=== PATIENT | male | born 1955 | race Caucasian/White ===

== ENCOUNTER 2018-08-27 13:17 | Outpatient (CLI) | payer OTHER ==
[2018-08-27] MEDS ORDERED: ALBUTEROL NEB 2.5 MG/3 ML INH ONE (13:35)
[2018-08-27] MEDS ORDERED: ALBUTEROL NEB 2.5 MG/3 ML INH SCH (15:00)
== END 2018-08-27 13:18 | disposition home or self-care (01) ==
LOC: RT 13:17
PROVIDERS: ATTEND Internal Medicine
DX: R06.09 Other forms of dyspnea (principal)
CPT/HCPCS: 94060

== ENCOUNTER 2019-04-05 06:48 | Day surgery (SDC) | payer OTHER ==
[2019-04-05] MEDS ORDERED: LACTATED RINGERS 1,000 ML IV ONE ×2 (06:56→09:07)
[2019-04-05] MEDS ORDERED: CEFAZOLIN SODIUM IN 0.9 % NACL 2 GM/100 ML BAG IV ONE (06:57)
--- NOTE | 2019-04-05 07:10 | ANESTHESIA ---
Pre-Anesthesia VS, & Labs - Diagnosis Right elbow cubital tunnel impingement - Procedure Right cubital elbow tunnel release Height 5 ft 8.9 in Weight (kg) 78.6 kg Body Mass Index 27.1 - NPO >8 hours Home Medications and Allergies Home Medications: Ambulatory Orders Aspirin [Aspirin EC] 81 mg PO 04/02/19 Carboxymethylcellulos/Glycerin [Refresh Optive Eye Drops] 5 ml OP 04/02/19 Fluticasone/Salmeterol [Advair 250-50 Diskus] 1 each IH 04/02/19 Loratadine [Claritin] 10 mg PO 04/02/19 Tiotropium [place] [Spiriva] 1 puffs INH DAILY 04/02/19 lisinopriL [Lisinopril] 20 mg PO QPM 04/02/19 Ibuprofen [Motrin Ib] 800 mg PO PRN PRN 05/08/17 Aspirin [Aspirin EC] 81 mg PO 04/02/19 Carboxymethylcellulos/Glycerin [Refresh Optive Eye Drops] 5 ml OP 04/02/19 Fluticasone/Salmeterol [Advair 250-50 Diskus] 1 each IH 04/02/19 Loratadine [Claritin] 10 mg PO 04/02/19 Tiotropium [place] [Spiriva] 1 puffs INH DAILY 04/02/19 lisinopriL [Lisinopril] 20 mg PO QPM 04/02/19 Allergies/Adverse Reactions: Allergies Allergy/AdvReac Type Severity Reaction Status Date / Time No Known Drug Allergies Allergy Verified 04/02/19 08:21 Anes History & Medical History - Anesthetic History Anesthesia Complications: reports: No previous complications Family history of Anesthesia Complications: Denies Family history of Malignant Hyperthermia: Denies (Heartburn rare) - Medical History Cardiovascular: reports: Hypertension, High cholesterol Pulmonary: reports: COPD Gastrointestinal: reports: GERD Urinary: reports: None, Other Neuro: reports: CVA (Right arn numbness, 4th/5th digit movement restrictions) Musculoskeletal: reports: Other Endocrine/Autoimmune: reports: None Skin: reports: None Smoking Status: Current every day smoker Psychosocial: reports: No issues indicated - Surgical History General: Colonoscopy, Other Orthopedic: Other Exam General: Alert, Oriented x3, Cooperative Dental: WNL Mouth Opening: Greater than 4 Fingerbreadths Neck Mobility: Normal Mallampati classification: I Thyromental Distance: greater than 6 cm Respiratory: Lungs clear Cardiovascular: Regular rate Mental/Cognitive Status: Alert/Oriented X3 Cognitive Status: Within normal limits Plan Anesthesia Type: General Consent for Procedure(s) Verified and Reviewed: Yes Code Status: Attempt Resuscitation ASA classification: 2-Mild systemic disease Is this case an emergency?: No
[2019-04-05] MEDS ORDERED: BUPIVACAINE 0.25% PF 30 ML VIAL ONE (07:24)
[2019-04-05] MEDS ORDERED: LIDOCAINE 1% 50 ML MDV ONE (07:34)
[2019-04-05] MEDS ORDERED: DEXAMETHASONE 4 MG/ML VIAL IVP ONE (08:11)
[2019-04-05] MEDS ORDERED: ePHEDrine 50 MG/ML VIAL IVP ONE (08:11)
[2019-04-05] MEDS ORDERED: LIDOCAINE-MPF 2% 5 ML VIAL IM ONE (08:11)
[2019-04-05] MEDS ORDERED: MIDAZOLAM 2 MG/2 ML VIAL IVP ONE (08:11)
[2019-04-05] MEDS ORDERED: ACETAMINOPHEN 1,000 MG/100 ML 100 ML IV ONE (08:11)
[2019-04-05] MEDS ORDERED: ROCURONIUM 50 MG/5 ML VIAL IVP ONE (08:11)
[2019-04-05] MEDS ORDERED: PROPOFOL 200 MG/20 ML VIAL IVP ONE (08:11)
[2019-04-05] MEDS ORDERED: ONDANSETRON 4 MG/2 ML VIAL IVP ONE (08:11)
[2019-04-05] MEDS ORDERED: fentaNYL 100 MCG/2 ML VIAL IVP ONE (08:11)
[2019-04-05] MEDS ORDERED: BUPIVACAINE 0.25% PF 30 ML VIAL SUBQ ONE (08:40)
[2019-04-05] MEDS ORDERED: ONDANSETRON 4 MG/2 ML VIAL IVP PRN (09:32)
[2019-04-05] MEDS ORDERED: oxyCODONE 5 MG TABLET PO PRN (09:32)
--- NOTE | 2019-04-05 09:43 | OPERATIVE REPORT ---
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 No protruding osteophytes were seen. The ulnar nerve was in continuity. Indication For Surgery: 63-year-old male with a history of a stroke who developed an ulnar nerve palsy about a month ago. Nerve conduction studies confirmed very severe compression at the elbow. The goal of surgery was to prevent any further nerve dysfunction and hopefully allow for recovery of muscle function. The risks, benefits, and alternatives were discussed. Risks include pain, bleeding, infection, damage to nearby structures to include nerves and blood vessels, numbness of the forearm, instability of the nerve, lack of symptom relief, need for further surgery, DVT, PE, stroke, and . Written consent was obtained. Procedure in Detail: The patient was met in the pre-operative hold area on the day of the procedure. The operative extremity was signed and questions were answered. The patient was brought to the operating room and a general anesthetic was administered. Supine position was used and bony prominences were padded. Standard prepping and draping was performed. A sterile tourniquet was applied. A time out confirmed patient identification, laterality, procedure, allergies, antibiotics, and images. An Esmarch was used to exsanguinate the limb and the tourniquet was elevated to 250 mmHg. Total tourniquet time was [] minutes. A 5 cm incision was made along the course of the ulnar nerve just posterior to the medial epicondyle. Scissor dissection was carried out and branches of the medial antebrachial cutaneous nerve were identified and protected. Scissor dissection was carried down to the cubital tunnel and it was opened just anterior to the attachment of the ligament on the olecranon. I took care to stay posterior to prevent future subluxation of the nerve. The ulnar nerve was identified and the cubital tunnel was dissected distally very carefully. I encountered the initial sensory branch to the capsule and the motor branches to the FCU and protected them. I sharply transected the fascia over the FCU to gain further access to the ulnar nerve as it passed deep into the muscle. blunt dissection was used to dissect the muscle and exposed the nerve further. I then released the fascia deep to the muscle and ensured the nerve was freely mobile distally without any compression points. I then moved proximal and followed the nerve up the medial arm a few centimeters taking care to protect any cutaneous branches. I freed the nerve proximally 4 cm from the medial epicondyle. I took care to leave as many veins as possible attached to the nerve. I then inspected deep to the nerve an did not find any protruding osteophytes. The course of the nerve was smooth and no bony resection was necessary. I then irrigated the wound copiously and took him through a full range of motion. The nerve had no compression points and remained stable in the groove. I then loosely approximated the fascia to the posterior soft tissues to provide additional support. I again moved him through a full range of motion and the nerve glided smoothly without instability or compression points. The wound was then closed in a layered fashion with 2-0 Vicryl in the dermis and running Monocryl in the skin. A sterile dressing was then applied and a bulky dressing was placed with the elbow nearly fully extended. He was awakened and transferred to the recovery room Postoperative plan: Gentle range of motion from 0-2 weeks. Follow-up at 2 weeks to cut Monocryl suture ends and assess the wound. I will remove the bulky dressing at that time and advance range of motion. No strengthening until 6 weeks.
[2019-04-05] MEDS ORDERED: oxyCODONE 5 MG TABLET ONE (10:13)
[2019-04-05 10:33] VITALS: BP 110/62
== END 2019-04-05 06:49 | disposition home or self-care (01) ==
LOC: SDS 06:48
PROVIDERS: ATTEND Orthopaedic Surgery
PROC: 01N40ZZ Release Ulnar Nerve, Open Approach (ICD-10-PCS; principal; 2019-04-05 08:00)
DX: G56.21 Lesion of ulnar nerve, right upper limb (principal); M19.021 Primary osteoarthritis, right elbow; I69.331 Monoplegia of upper limb following cerebral infarction affecting right dominant side; I10 Essential (primary) hypertension; J44.9 Chronic obstructive pulmonary disease, unspecified; F17.290 Nicotine dependence, other tobacco product, uncomplicated; Z79.899 Other long term (current) drug therapy; Z79.51 Long term (current) use of inhaled steroids; Z79.82 Long term (current) use of aspirin

== ENCOUNTER 2019-07-30 12:12 | Outpatient (CLI) | payer OTHER ==
--- NOTE | 2019-07-30 17:19 | MRI Report ---
Reason: CERVICALGIA Procedure Date: 07/30/2019 Accession Number: [id number] / [id number] Procedure: MRI - Cervical Spine W/O CPT Code: Final Report FULL RESULT: PROCEDURE: Cervical Spine W/O INDICATIONS: CERVICALGIA TECHNIQUE: Noncontrast sagittal T1 spin echo and T2 fast spin echo, sagittal STIR, foraminal oblique sagittal T2 fast spin echo, and axial gradient echo or T2 fast spin echo through the cervical spine. COMPARISON: None. FINDINGS: Image quality: Excellent. Alignment and Curvature: There is normal bony alignment. Bone Marrow: Mild reactive endplate changes noted adjacent to the C6-C7 disc. Spinal Cord: Visualized spinal cord has normal size and signal. No cerebellar tonsillar herniation. Paraspinous Soft Tissues: No paravertebral masses. Prevertebral soft tissues are normal in thickness. C2-C3: Loss of disc signal. No central stenosis. Mild left facet hypertrophy. Mild left neural foraminal narrowing. No neural compression. C3-C4: Loss of disc signal. Mild, diffuse disc bulge. No central stenosis. Mild left facet hypertrophy. Moderate right and severe left neural foraminal narrowing with compression of the exiting left C4 nerve root. C4-C5: Loss of disc signal. Minimal, diffuse disc bulge. Mild left facet hypertrophy. Mild bilateral uncovertebral joint hypertrophy. Severe bilateral neural foraminal narrowing with compression of the exiting C5 nerve roots. C5-C6: Loss of disc signal and slight loss of disc height. Mild to moderate diffuse disc bulge. Moderate narrowing of the central canal. Mild bilateral facet hypertrophy. Mild bilateral uncovertebral joint hypertrophy. Severe bilateral neural foraminal narrowing with compression of the exiting C6 nerve roots. C6-C7: Loss of disc signal and height. Moderate, diffuse disc bulge. Moderate to severe narrowing of the central canal. Mild bilateral facet hypertrophy. Mild right and moderate left uncovertebral joint hypertrophy. Moderate right and severe left neural foraminal narrowing with compression of the exiting left C7 nerve root. C7-T1: Loss of disc signal. Mild, diffuse disc bulge. Mild left facet hypertrophy. Mild left neural foraminal narrowing. No neural foraminal narrowing. No neural compression. IMPRESSION: 1. Multilevel degenerative disc disease. 2. Multilevel facet and uncovertebral arthropathy. 3. Moderate to severe C6-7 C7 central canal narrowing. 4. Severe bilateral C4-C5 and C5-C6 neural foraminal narrowing. Severe left C3-C4 and C6-C7 neural foraminal narrowing. 5. Compression of the exiting left C4 nerve root, exiting bilateral C5 nerve roots, exiting bilateral C6 nerve roots and exiting left C7 nerve root secondary to neural foraminal narrowing. Reviewed by: Melisa Calloway MD, PhD on 07/30/2019 5:18 PM PDT Approved by: Melisa Calloway MD, PhD on 07/30/2019 5:18 PM PDT Station ID: [id number]
== END 2019-07-30 12:13 | disposition home or self-care (01) ==
LOC: DI 12:12
PROVIDERS: ATTEND Orthopaedic Surgery
DX: M50.31 Other cervical disc degeneration, high cervical region (principal); M48.02 Spinal stenosis, cervical region; M47.22 Other spondylosis with radiculopathy, cervical region
CPT/HCPCS: 72141

== ENCOUNTER 2021-10-26 14:49 | Outpatient (CLI) | payer MEDICARE, OTHER ==
--- NOTE | 2021-10-26 16:08 | XRAY Report ---
PROCEDURE: Lumbar Spine 2 View INDICATIONS: LOW BACK PX TECHNIQUE: 3 views of the lumbar spine were acquired. COMPARISON: None. FINDINGS: Bones: 5 [id number]-rbo-[id number] vertebrae are present. There is mild diffuse rightward curvature of the andreas mbar spine. Loss of normal lumbar lordosis. Multilevel disc space narrowing and endplate osteophyte f ormation, as well as facet hypertrophy throughout the lumbar spine. No vertebral body compression fra ctures. No suspicious bony lesions. Soft tissues: Overlying bowel gas pattern is normal. No suspicious soft tissue calcifications. IMPRESSION: Multilevel degenerative disc and facet disease. No acute fracture. No osseous lesion. If symptoms and/or clinical suspicion for pathology continue, further assessment with repeat plain film s, or advanced imaging (e.g., CT, MRI, or bone scan) is recommended for further assessment. Reviewed by: Bhakti Sagastume MD on 10/26/2021 4:06 PM PDT Approved by: Bhakti Sagastume MD on 10/26/2021 4:06 PM PDT Station ID: [id number]
--- NOTE | 2021-10-26 20:33 | XRAY Report ---
PROCEDURE: Thoracic Spine 2 View INDICATIONS: UPPER BACK PX TECHNIQUE: 2 views of the thoracic spine were acquired. COMPARISON: None. FINDINGS: Bones: No fractures or dislocations. No suspicious bony lesions. 12 pairs of ribs are noted, and a ppear intact where visualized. Moderate multilevel disc height loss and endplate spurring. Soft tissues: No paravertebral stripe thickening. IMPRESSION: 1. Moderate degenerative changes of the thoracic spine. 2. No acute fracture visualized. If symptoms persist, follow-up radiographs and/or CT or MRI may be h elpful for further evaluation. Reviewed by: Osman Edwards MD on 10/26/2021 8:32 PM PDT Approved by: Osman Edwards MD on 10/26/2021 8:32 PM PDT Station ID: [id number]
--- NOTE | 2021-10-26 20:38 | XRAY Report ---
PROCEDURE: Cervical Spine 2 View INDICATIONS: NECK PX TECHNIQUE: 3 view(s) of the cervical spine were acquired. COMPARISON: None. FINDINGS: Bones: No fractures or dislocations to the C7-T1 level. The lateral masses of C1 at not well visual ized on the odontoid view. No suspicious bony lesions. 2 mm anterolisthesis C5 on C6, likely degene rative. Moderate multilevel disc height loss, endplate spurring, and facet arthropathy, most pronounc ed at the lower cervical spine. Degenerative changes at the C1-C2 articulation also demonstrated. Soft tissues: No prevertebral soft tissue swelling. Soft tissue calcifications at the neck bilatera lly, likely vascular/carotid. IMPRESSION: 1. Moderate multilevel degenerative changes of the cervical spine. 2. No acute fracture visualized. If symptoms persist, follow-up radiographs and/or CT or MRI may be h elpful for further evaluation. Reviewed by: Osman Edwards MD on 10/26/2021 8:37 PM PDT Approved by: Osman Edwards MD on 10/26/2021 8:37 PM PDT Station ID: [id number]
== END 2021-10-26 14:50 | disposition home or self-care (01) ==
LOC: DI.N 14:49
PROVIDERS: ATTEND Registered Nurse
DX: M47.812 Spondylosis without myelopathy or radiculopathy, cervical region (principal); M43.12 Spondylolisthesis, cervical region; M47.814 Spondylosis without myelopathy or radiculopathy, thoracic region; M47.816 Spondylosis without myelopathy or radiculopathy, lumbar region; M51.36 Other intervertebral disc degeneration, lumbar region

== ENCOUNTER 2021-12-24 13:26 | Outpatient (CLI) | payer MEDICARE, OTHER ==
[2021-12-24 17:44] LABS: BASOPHILS # (AUTO) 0.2 10^3/uL (0.0-0.1); BASOPHILS % (AUTO) 1.3 %; EOSINOPHILS # (AUTO) 0.9 10^3/uL (0.0-0.7); EOSINOPHILS % (AUTO) 8.2 %; HCT - HEMATOCRIT 42.4 % (42.0-52.0); HGB - HEMOGLOBIN 13.7 g/dL (14.0-18.0); LYMPHOCYTES # (AUTO) 4.7 10^3/uL (1.5-3.5); LYMPHOCYTES % (AUTO) 41.7 %; MEAN CORPUSCULAR HEMOGLOBIN 31.1 pg (27.0-31.0); MEAN CORPUSCULAR HGB CONC 32.3 g/dL (32.0-36.0); MEAN CORPUSCULAR VOLUME 96.1 fL (80.0-94.0); MEAN PLATELET VOLUME 9.5 fL (7.4-11.4); MONOCYTES # (AUTO) 0.8 10^3/uL (0.0-1.0); MONOCYTES % (AUTO) 6.7 %; NEUTROPHILS # (AUTO) 4.8 10^3/uL (1.5-6.6); NEUTROPHILS % (AUTO) 41.7 %; PLT - PLATELET COUNT 333 10^3/uL (130-450); RED BLOOD COUNT 4.41 10^6/uL (4.70-6.10); RED CELL DISTRIBUTION WIDTH 16.3 % (12.0-15.0); WHITE BLOOD COUNT 11.4 x10^3/uL (4.8-10.8)
[2021-12-24 18:03] LABS: ALBUMIN 4.4 g/dL (3.2-5.5); ALBUMIN/GLOBULIN RATIO 1.3 (1.0-2.2); ALKALINE PHOSPHATASE 67 IU/L (42-121); ALT ALANINE AMINOTRANSFERASE 13 IU/L (10-60); AST ASPARTATE AMINOTRANSFERASE 21 IU/L (10-42); BILIRUBIN,TOTAL 1.1 mg/dL (0.2-1.0); BUN - BLOOD UREA NITROGEN 12 mg/dL (6-20); CALCIUM 9.7 mg/dL (8.5-10.3); CARBON DIOXIDE - CO2 28 mmol/L (21-32); CHLORIDE 99 mmol/L (101-111); CHOL/HDL RATIO 3.5 (<5.0); CHOLESTEROL 178 mg/dL; CREATININE 0.9 mg/dL (0.6-1.2); GFR - MDRD 85 (>89); GLUCOSE 93 mg/dL (70-100); HDL CHOLESTEROL 51 mg/dL; LDL CHOLESTEROL,CALCULATED 75 mg/dL; LDL/HDL RATIO 1.5 (<3.6); POTASSIUM 4.5 mmol/L (3.5-5.0); SODIUM 135 mmol/L (135-145); TOTAL PROTEIN 7.9 g/dL (6.7-8.2); TRIGLYCERIDES 261 mg/dL; VLDL CHOLESTEROL 52 mg/dL
[2021-12-24 18:14] LABS: THYROID STIMULATING HORMONE 1.86 uIU/mL (0.34-5.60)
== END 2021-12-24 13:27 | disposition home or self-care (01) ==
LOC: LAB.N 13:26
PROVIDERS: ATTEND Nurse Practitioner
DX: I10 Essential (primary) hypertension (principal); R53.83 Other fatigue; Z13.220 Encounter for screening for lipoid disorders; Z12.5 Encounter for screening for malignant neoplasm of prostate
CPT/HCPCS: 36415; 80053; 80061; 84443; 85025; G0103; 83721; 84153

== ENCOUNTER 2022-03-07 14:32 | Outpatient (CLI) | payer MEDICARE, OTHER ==
--- NOTE | 2022-03-08 15:44 | CT Report ---
PROCEDURE: Low Dose Lung Cancer Screen INDICATIONS: SMOKER TECHNIQUE: Noncontrast low-dose axial images were acquired from the pulmonary apices to the posterior costophren ic angles. Multiplanar MIP reformats were then reconstructed. For radiation dose reduction, the follo wing was used: automated exposure control, adjustment of mA and/or kV according to patient size. COMPARISON: None. FINDINGS: Image quality: Excellent. Lungs and pleura: There is a 7 mm nodule in the posterior segment of the right upper lobe (series 4 image 115). [id number] emphysema. Bilateral subpleural scars and atelectasis. No acute pulmon brody opacity. Mediastinum: Heart size is normal. Moderate coronary calcification. No pericardial effusion. There is a 1.2 cm precarinal lymph node. Thoracic aorta and central pulmonary arteries are normal in size. Esophagus is normal in caliber. No hiatal hernia. Bones and chest wall: No suspicious bony lesions. No vertebral body compression fractures. No axil darrel or supraclavicular adenopathy by size criteria. The thyroid is normal in size and there are no incidental findings. Abdomen: There is a 1.4 cm hypodense nodule in the posterior segment of the right hepatic lobe, most likely a cyst. Visualized upper abdomen solid organs and bowel loops otherwise appear normal in the absence of contrast. IMPRESSION: 1. There is a 7 mm nodule in the posterior segment of the right upper lobe. ACR lung RADS 4A. Recomme nd a short-term follow-up CT in 3 months. 2. Nyidzajw-rr-pvpoxy emphysema. 3. A mildly enlarged mediastinal lymph node, nonspecific. This can be followed on follow-up CT. 4. Moderate coronary atherosclerosis. Reviewed by: Liliam Erickson MD on 03/08/2022 2:42 PM AKST Approved by: Liliam Erickson MD on 03/08/2022 2:42 PM AKST Station ID: [id number]
== END 2022-03-07 14:33 | disposition home or self-care (01) ==
LOC: DI 14:32
PROVIDERS: ATTEND Physician Assistant
DX: Z12.2 Encounter for screening for malignant neoplasm of respiratory organs (principal); J43.9 Emphysema, unspecified; R91.1 Solitary pulmonary nodule; R59.0 Localized enlarged lymph nodes; I25.10 Atherosclerotic heart disease of native coronary artery without angina pectoris; F17.210 Nicotine dependence, cigarettes, uncomplicated

== ENCOUNTER 2022-05-17 12:25 | Outpatient (CLI) | payer MEDICARE, OTHER ==
[2022-05-17 17:55] LABS: BASOPHILS # (AUTO) 0.1 10^3/uL (0.0-0.1); BASOPHILS % (AUTO) 0.9 %; EOSINOPHILS # (AUTO) 0.6 10^3/uL (0.0-0.7); EOSINOPHILS % (AUTO) 5.2 %; HCT - HEMATOCRIT 44.3 % (42.0-52.0); HGB - HEMOGLOBIN 14.2 g/dL (14.0-18.0); LYMPHOCYTES # (AUTO) 4.7 10^3/uL (1.5-3.5); LYMPHOCYTES % (AUTO) 39.9 %; MEAN CORPUSCULAR HEMOGLOBIN 30.5 pg (27.0-31.0); MEAN CORPUSCULAR HGB CONC 32.1 g/dL (32.0-36.0); MEAN CORPUSCULAR VOLUME 95.3 fL (80.0-94.0); MEAN PLATELET VOLUME 9.3 fL (7.4-11.4); MONOCYTES # (AUTO) 0.8 10^3/uL (0.0-1.0); MONOCYTES % (AUTO) 6.6 %; NEUTROPHILS # (AUTO) 5.5 10^3/uL (1.5-6.6); PLT - PLATELET COUNT 329 10^3/uL (130-450); RED BLOOD COUNT 4.65 10^6/uL (4.70-6.10); RED CELL DISTRIBUTION WIDTH 15.8 % (12.0-15.0); WHITE BLOOD COUNT 11.6 x10^3/uL (4.8-10.8)
[2022-05-17 18:10] LABS: % IRON SATURATION 27 % (20-50); IRON 108 ug/dL (45-182); TOTAL IRON BINDING CAPACITY 395 ug/dL (250-450); TRANSFERRIN 282 mg/dL (180-329)
[2022-05-17 18:19] LABS: FERRITIN 21.7 ng/mL (23.9-336.2)
[2022-05-17 18:22] LABS: FOLATE 16.36 ng/mL (5.90 - >24.8)
== END 2022-05-17 12:26 | disposition home or self-care (01) ==
LOC: LAB.N 12:25
PROVIDERS: ATTEND Nurse Practitioner
DX: D64.9 Anemia, unspecified (principal)
CPT/HCPCS: 36415; 82607; 82728; 82746; 83540; 84466; 85025

== ENCOUNTER 2022-05-27 10:23 | Outpatient (CLI) | payer MEDICARE, OTHER | END 2022-05-27 10:24 | disposition E | LOC: EMS 10:23 ==